=== PATIENT | male | born 1980 | race Caucasian/White ===

== ENCOUNTER → 2020-12-22 13:37 | Outpatient (BNVA) | payer OTHER, SELFPAY | PROVIDERS: PCP Internal Medicine; Visit Provider Surgery | DX: K60.3 Anal fistula (principal) | CPT/HCPCS: 99212 ==

== ENCOUNTER 2022-02-25 14:32 | Emergency (ER) | payer OTHER, SELFPAY ==
--- NOTE | ~2022-02-25 | XR_ITS ---
EXAMINATION: XR SHOULDER, RIGHT CLINICAL INFORMATION: Injury after throwing heavy object COMPARISON: None TECHNIQUE: Three views of the right shoulder. FINDINGS: Bone alignment is normal. No fracture or dislocation is seen. The glenohumeral joint is normal. There is mild arthritis at the acromioclavicular joint. Soft tissues are unremarkable. XR/XR shoulder RT min 2V IMPRESSION: Mild arthritis at the acromioclavicular joint.
[2022-02-25 14:44] VITALS: BP 122/76; BP 124/76; PULSE 74; PULSE 80; RESP 20; TEMP 36.7; O2SAT 96; O2SAT 97; BMI 21.1
--- NOTE | 2022-02-25 15:42 | ED.UPPEXIN ---
HPI - Extremity Injury (Upper) General Chief Complaint: Extremity Problem Stated Complaint: shoulder pain Time Seen by Provider: 02/25/22 15:34 Source: patient Mode of arrival: ambulatory Limitations: no limitations History of Present Illness MD complaint: injury to: right and shoulder Onset (ago): day(s) (2) Other Extremity Injury: right: shoulder Other injuries: none Place: outdoors Severity: severe Severity scale (1-10): >10 Relieving factors: none Exacerbating factors: movement of extremity Context: other (Heavy lifting) Associated symptoms: denies other symptoms Related Data Previous Rx's Medication Instructions Recorded cyclobenzaprine 10 mg tablet 10 mg PO Q8H PRN #10 tab 02/25/22 naproxen 500 mg tablet 500 mg PO BID PRN #10 tab 02/25/22 Allergies Allergy/AdvReac Type Severity Reaction Status Date / Time No Known Allergies Allergy Unverified 07/09/20 15:12 [No Known Allergies*] Review of Systems Review of Systems: Constitutional : No Weight loss, No Fever, No Chills, No Night Sweats, No Fatigue, No Malaise ENT/Mouth : No Hearing loss, No Ear Pain, No Nasal Congestion, No Sinus Pain, No Hoarseness, No sore throat, No Rhinorrhea, No Swallowing Difficulty Eyes: No Eye Pain, No Swelling, No Redness, No Foreign Body, No Discharge, No Vision Changes Cardiovascular : No Chest Pain, No SOB, No Dyspnea on Exertion, No Orthopnea, No Edema, No Palpitations Respiratory : No Cough, No Sputum, No Wheezing, No Smoke Exposure, No Dyspnea Gastrointestinal : No Nausea, No Vomiting, No Diarrhea, No Constipation, No abdominal Pain, No Hematochezia, No Melena Genitourinary : no irregular bleeding, No Dysuria, No Urinary Frequency, No Hematuria, No Urinary Incontinence, No Urgency, No Flank Pain, No Urinary Flow Changes, No Hesitancy Musculoskeletal : + right shoulder joint pain, No Myalgias, No Joint Swelling Skin : No Skin Lesions, No rash Neuro : No Weakness, No Numbness, No Paresthesias, No Loss of Consciousness, No Dizziness, No Headache Psych : No Anxiety/Panic, No Depression, No SI/HI/AH/VH, No Social Issues, Heme/Lymph: No Bruising, No Bleeding,No Lymphadenopathy Endocrine : No Polyuria, No Polydipsia, No Temperature Intolerance Yes all other systems are reviewed and are negative [facility] Past Medical History Attestation statement: The following information was validated with the patient. Medical History Anxiety Depression History of substance abuse Paralysis of right lower extremity Surgical History H/O fasciotomy (05/03/17) Family History Family History Maternal Grandmother History of cancer Social History Social History Alcohol intake: never Advance Directives: No Advance Directives Information Provided: No Physical Exam Vital Signs: Vital Signs: Last Vital Signs Temp 98.0 F 02/25/22 14:44 Pulse 74 02/25/22 14:44 Resp 20 02/25/22 14:44 BP 124/76 02/25/22 14:44 Pulse Ox 96 02/25/22 14:44 BMI result Body Mass Index 21.1 vital signs have been reviewed as normal and appeared to be correct. Blood pressure normal Heart rate normal. Respiration rate normal. Temperature normal. Oxygen saturation normal. Appearance: Alert. Oriented X3. No acute distress. Head: Normal external exam. Normocephalic. Atraumatic. Eyes: PERRLA. EOMI. Conjunctiva and sclera normal. Eyelids normal. ENT: Pharynx normal. Uvula midline. Moist mucous membranes. Neck: Normal inspection. Neck supple. FROM. CVS: Normal heart rate and rhythm. Respiratory: No respiratory distress. Painless inspiration. Skin: Skin warm and dry. Normal skin color. Normal skin turgor. No rashes/lesions/lacerations noted. Extremities: Patient moderate tenderness palpation to the right AC joint with limited range of motion due to pain no obvious ligamentous or tendon injury noted. No muscle rupture noted. Patient has chronic right lower extremity weakness with his boot on. Otherwise all other extremities exhibit normal range of motion nontender. No edema noted. Neuro: Oriented X 3. No motor deficit. No sensory deficit. Reflexes normal. Normal steady gait. No focal neuro deficits noted. Vascular: + radial pulses/+ 2 distal pedal pulses/+2 dorsalis pedis b/l. Normal cap refill. No cyanosis noted to upper extremity nails and lower extremity toes nails. Course Course Course Narrative: X-ray revealed mild arthritis otherwise no other acute processes. Will place in a sling although explained to the patient that he needs to attempt to move his shoulder as much as he can to prevent frozen shoulder. Along with instructions to follow-up with his PCP or orthopedics if symptoms persist for possible outpatient MRI they decide it is clinically indicated. Patient understands agrees with this plan. MDM - Extremity Injury (Upper) Medical Records Attestation: I reviewed the patient's medical records. Imaging Data Right shoulder x-ray: Attestation: I personally reviewed and interpreted this imaging study as follows: Radiologist's impression: FINDINGS: Bone alignment is normal. No fracture or dislocation is seen. The glenohumeral joint is normal. There is mild arthritis at the acromioclavicular joint. Soft tissues are unremarkable.? XR/XR shoulder RT min 2V IMPRESSION: Mild arthritis at the acromioclavicular joint. Discharge Plan Discharge Clinical Impression: Arthritis of right shoulder region, Right shoulder strain Patient Disposition: Home, Self-Care Instructions: Muscle Strain (DC), Osteoarthritis (ED), How to Use a Sling (ED) Prescriptions: New naproxen 500 mg tablet 500 mg PO BID PRN (Reason: pain) Qty: 10 0RF cyclobenzaprine 10 mg tablet 10 mg PO Q8H PRN (Reason: Muscle spasm) Qty: 10 0RF Referrals: Richa Hart MD [Physician] - 2 weeks (Call to make a follow-up appointment within 2-3 weeks) Interventions: ED Discharge Assessment Last Done: 02/25/22 15:53 Print Language: French
--- NOTE | 2022-02-25 17:11 | PC.NURSE ---
ALLICION ATTENPTED TO BOOK RIDE HOME BY CHAIR VAN FOR PATIENT. PT DID NOT QUALIFY FOR CHAIR VAN. PT AWARE AMB OUT OF [facility] WITH [facility].
== END 2022-02-25 17:13 | disposition home or self-care (01) ==
LOC: HO.ED 15:48
PROVIDERS: Emergency Provider Emergency Medicine Emergency Medical Services
DX: S46.911A Strain of unspecified muscle, fascia and tendon at shoulder and upper arm level, right arm, initial encounter (principal); M19.011 Primary osteoarthritis, right shoulder; X50.0XXA Overexertion from strenuous movement or load, initial encounter; Y93.9 Activity, unspecified; Y92.9 Unspecified place or not applicable; Y99.9 Unspecified external cause status
CPT/HCPCS: 73030; 99283

== ENCOUNTER 2023-05-31 12:04 | Outpatient (REF) | payer OTHER, SELFPAY ==
[2023-05-31 13:30] LABS: MANUAL DIFF FLAG NO
[2023-05-31 13:38] LABS: Basophils Percent Auto 0.3 % (0-2); Eosinophils Absolute Auto 0.1 X10*3/uL (0.0-0.4); Eosinophils Percent Auto 2.1 % (0-4); Hematocrit 38.4 % (42.0-52.0); Hemoglobin 12.1 g/dl (14.0-18.0); Imm Gran Abs Auto 0.01 X10*3/uL (0.00-0.03); Imm Gran Pct Auto 0.2 % (0.0-0.4); Lymphocytes Absolute Auto 1.7 X10*3/uL (1.2-4.9); Lymphocytes Percent Auto 25.4 % (20-40); Mean Corpuscular HGB Conc 31.5 g/dl (31.0-36.0); Mean Corpuscular Hemoglobin 28.5 pg (27.0-33.0); Mean Corpuscular Volume 90.6 fL (80.0-98.0); Mean Platelet Volume 10.5 fL (9.4-12.4); Monocytes Absolute Auto 0.5 X10*3/uL (0.1-1.2); Monocytes Percent Auto 6.9 % (2-11); Neutrophils Absolute Auto 4.3 x10*3/uL (2.0-8.3); Neutrophils Percent Auto 65.1 % (45-73); Platelet Count 222 X10*3/uL (160-400); Red Blood Count 4.24 X10*6/uL (4.60-5.80); Red Cell Distribution Width 13.2 % (11.0-16.0); White Blood Count 6.6 X10*3/uL (4.8-10.8)
[2023-05-31 13:51] LABS: Alanine Aminotransferase 48 U/L (0-40); Albumin Level 4.2 g/dL (3.5-5.0); Alkaline Phosphatase 90 U/L (39-117); Anion Gap 12 (12-20); Aspartate Amino Transferase 42 U/L (5-37); Bilirubin Total 0.1 mg/dL (0.0-1.0); Blood Urea Nitrogen 13 mg/dL (9-16); Calcium 9.7 mg/dL (8.4-10.2); Carbon Dioxide 28 mmol/L (22-29); Chloride 104 mmol/L (96-108); Cholesterol 147 mg/dL; Estimated Glomerular Filt Rate > 60; Glucose Random 130 mg/dL (60-115); Potassium 4.5 mmol/L (3.3-5.1); Sodium 139 mmol/L (135-145); Total Protein 7.3 g/dL (6.5-8.0)
== END 2023-05-31 12:05 | disposition home or self-care (01) ==
LOC: HO.10HDL 12:04
PROVIDERS: Visit Provider Internal Medicine
DX: M21.951 Unspecified acquired deformity of right thigh (principal); Z79.899 Other long term (current) drug therapy
CPT/HCPCS: 36415; 80053; 82465; 85025

== ENCOUNTER 2024-04-30 08:58 | Outpatient (AMB) | payer OTHER, SELFPAY ==
--- NOTE | 2024-04-30 08:59 | A.OFFVIS_ITS ---
Intake Visit Reasons: Cyst on buttock and discussion BKA Intake Note: This patient presents for a cyst on the right buttock and discussion BKA. Patient c/o; reports occasional drainage from buttock cyst, reports pain, reports wants to proceed with BKA right lower extremity. 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 He reports occasional swelling and pain and occasional discharge from the site. He previously underwent drainage of this cyst with this has subsequently recurred. He presents now to discuss a wider excision. He also has a prior history of right leg compartment syndrome requiring fasciotomy and debridement of necrotic muscle. He now has deformity of the right leg is considering an elective right leg below-knee amputation given his significant disability. [facility] Medical History History of substance abuse Paralysis of right lower extremity Depression Anxiety Surgical History H/O fasciotomy (05/03/17) Family History Maternal Grandmother History of cancer Social History Alcohol intake: never Review of Systems Const All systems reviewed & are unremarkable except as noted in HPI and below Physical Exam Const General: no acute distress Nutritional Appearance: well nourished Orientation/consciousness: patient oriented x3 HEENT Head: Yes normocephalic and Yes atraumatic Resp Effort & Inspection: normal respiratory effort, no audible wheezes, no cough and no respiratory distress Back/Spine/Pelvis Other: Right buttock with a 2 cm cystic lesion located at approximately the 03:00 o'clock location, with central scar. No overlying erythema is appreciated. Lesion is slightly fluctuant. Minimal tenderness noted to palpation. Neuro General: patient oriented x3 Extrem Other: Deformed right ankle with inward rotation. Overlying brace in place. Ankle/foot/toe images: 2 1. Inward rotation Assessment & Plan Assessment & Plan (1) Perirectal cyst: Code(s): K62.89 - Other specified diseases of anus and rectum Category: Medical Plan 43-year-old male patient presenting with a recurrent perirectal cyst suggestive of a perirectal abscess. I recommended wide excision with possible excision of an internal track. After discussion of the procedure, risks, and alternatives, he consents to the excision of the right perirectal cyst. This will be scheduled as a short-stay surgery. Coding Level of Care Code Est Pt Level 3 (75793) Diagnoses Perirectal cyst K62.89
== END 2024-04-30 09:23 | disposition home or self-care (01) ==
PROVIDERS: PCP Internal Medicine; Visit Provider Surgery
DX: K62.89 Other specified diseases of anus and rectum (principal)
CPT/HCPCS: 99214

== ENCOUNTER → 2024-04-30 08:58 | Outpatient (BNVA) | payer OTHER, SELFPAY | PROVIDERS: PCP Internal Medicine; Visit Provider Surgery | DX: K62.89 Other specified diseases of anus and rectum (principal) | CPT/HCPCS: 99212 ==

== ENCOUNTER 2025-01-30 11:49 | Outpatient (AMB) | payer OTHER, SELFPAY ==
--- NOTE | 2025-01-30 11:54 | MHC.OFFVIS ---
Vital Signs 01/30/25 11:55 Height 5 ft 7 in Weight 136 lb 10.986 oz BMI 21.4 BP 110/72 Blood Pressure Location Lt brachial Position Sitting Intake Visit Reasons: cyst on buttock Intake Note: Patient is seen in office for recurrent cyst on the buttock. Pt c/o: admits to recurrent cyst, last recurrence was 3 wks ago, discharge stopped 3 days ago, would like to have cyst surgically removed L.OV:04/30/25 Jazz Musician Required: No Accompanied by: Self / Same As Patient Allergies No Known Allergies [No Known Allergies*] Allergy (Verified 01/30/25 11:55) Medication List - Last Reconciled 01/30/25 by Sean Pastrana MD cyclobenzaprine 10 mg PO Q8H PRN ibuprofen 800 mg PO BID PRN methadone 120 mg PO DAILY naproxen 500 mg PO BID PRN HPI Comments Details: 44-year-old male patient who again returns for re-evaluation of a perirectal cyst. He has had multiple previous infections and was previously evaluated for excision. The patient has never undergone the excision recommended. He developed increased area of swelling and pain over the past week. After applying warm compresses he was able to drain the infected cyst of a large collection of pus. Since this time the pain has decreased and the swelling has markedly improved. He presents today to discuss excision of this recurrent perirectal cyst. [facility] Medical History History of substance abuse Paralysis of right lower extremity Depression Anxiety Surgical History H/O fasciotomy (05/03/17) Family History Maternal Grandmother History of cancer Social History Alcohol intake: never Physical Exam Vital Signs: Last Vital Signs BP 110/72 01/30/25 11:55 BMI result Body Mass Index 21.4 Const General: no acute distress Nutritional Appearance: well nourished Orientation/consciousness: patient oriented x3 HEENT Head: Yes normocephalic and Yes atraumatic Resp Effort & Inspection: normal respiratory effort, no audible wheezes, no cough and no respiratory distress Back/Spine/Pelvis Other: Right buttock with a 2 cm cystic lesion located at approximately the 03:00 o'clock location, with central scar. No overlying erythema is appreciated. Lesion is slightly fluctuant. Minimal tenderness noted to palpation. Neuro General: patient oriented x3 Extrem Other: Deformed right ankle with inward rotation. Overlying brace in place. Assessment & Plan Assessment & Plan (1) Perirectal cyst: Code(s): K62.89 - Other specified diseases of anus and rectum Category: Medical Plan 44-year-old male patient with a recurring perirectal abscess returning after a recent infection which cause an increased amount of pain swelling. Examination today reveals healing scar from a recent infection. There is still some surrounding inflammatory tissue noted. No undrained abscess is appreciated at this time. We again discussed wide excision of this area to prevent further infections and after discussion of the procedure, risks, and alternatives, he consents to an excision of the right perirectal cyst. He will be scheduled as a short-stay surgery. Coding Level of Care Code Est Pt Level 4 (33714) Diagnoses Perirectal cyst K62.89
[2025-01-30 11:55] VITALS: BP 110/72; BMI 21.4
== END 2025-01-30 12:00 | disposition home or self-care (01) ==
LOC: HO.HGS 11:49
PROVIDERS: PCP Internal Medicine; Visit Provider Surgery
DX: K62.89 Other specified diseases of anus and rectum (principal)
CPT/HCPCS: 99214

== ENCOUNTER → 2025-01-30 11:49 | Outpatient (BNVA) | payer OTHER, SELFPAY | PROVIDERS: PCP Internal Medicine; Visit Provider Surgery | DX: K62.89 Other specified diseases of anus and rectum (principal) | CPT/HCPCS: 99212 ==

== ENCOUNTER 2025-02-26 10:25 | Outpatient (AMB) | payer OTHER, SELFPAY ==
[2025-02-26 09:44] VITALS: BP 112/62; PULSE 78; TEMP 36.2; O2SAT 97; BMI 19.7
--- NOTE | 2025-02-26 09:44 | A.OFFPC_ITS ---
Vital Signs 02/26/25 09:44 Height 5 ft 7 in Weight 126 lb BMI 19.7 BP 112/62 Blood Pressure Location Rt brachial Position Sitting Pulse 78 Pulse Source Pulse Oximeter Temp 97.2 F Temp Source Axillary Pulse Oximetry (%) 97 Oxygen Delivery Method Room Air Intake Visit Reasons: Routine - see comments Building Wrecker Required: No Accompanied by: Self / Same As Patient Allergies No Known Allergies [No Known Allergies*] Allergy (Verified 02/26/25 09:45) Tobacco use date assessed: 02/26/25 Dental Screening Dental Screen Date: 02/26/25 Did you have a dental visit in the last 12 months?: No Did you have a dental problem in the last 6 months where you did not have access to dental care?: No PFSH Medical History History of substance abuse Paralysis of right lower extremity Depression Anxiety Surgical History H/O fasciotomy (05/03/17) Family History (Updated 02/26/25 @ 10:39 by Kanwal Steele MA) Maternal Grandmother History of cancer Mother No problems noted. Father No problems noted. Sister Mental health disorder Social History Housing: Apartment Alcohol intake: never Patient Tobacco Use Status: Former Tobacco user e-Cigarette/Vaping Use: Former Use service: No Current occupational status: disabled Cognitive needs: No Hearing needs: No Vision needs: No Questionnaire PHQ-9 Over the last 2 weeks, how often have you been bothered by any of the following problems? 1. Little interest or pleasure in doing things: not at all 2. Feeling down, depressed, or hopeless: not at all 3. Trouble falling or staying asleep, or sleeping too much: not at all 4. Feeling tired or having little energy: not at all 5. Poor appetite or overeating: not at all 6. Feeling bad about yourself - or that you are a failure or have let yourself or your family down: not at all 7. Trouble concentrating on things, such as reading the newspaper or watching television: not at all 8. Moving or speaking so slowly that other people could have noticed. Or the opposite - being so fidgety or restless that you have been moving around a lot more than usual: not at all 9. Thoughts that you would be better off or of hurting yourself in some way: not at all Total score: 0 Source: Developed by Drs. Mushtaq Wilson, Adam Slater and colleagues, with an educational emilie from [employer]. Thrive Questionnaire Date Thrive assessed: 02/26/25 I am a: Patient Within the past 12 months, did the food you bought not last and you didn't have the money to get more?: Never true Within the past 12 months, did you worry whether your food would run out before you got money to buy more?: Never true Do you have trouble paying for medicines?: No Do you have trouble getting transportation to medical appointments?: No Do you have trouble paying your heating and electricity bill?: No Do you have trouble taking care of your child, family member or friend?: No Do you have trouble with day-to-day activities such as bathing, preparing meals, shopping, managing finances, etc.?: No Are you currently unemployed and looking for a job?: No Are you interested in more education?: No THRIVE Score: 0 AUDIT C Alcohol Use Questionnaire (AUDIT-C) 1. How often do you have a drink containing alcohol?: Never 3. How often do you have six or more drinks on one occasion?: Never Total Score: 0 BROOKLYN-7 AMB Questionnaire BR[place]N-7 Date [place] - 7 assessed: 02/26/25 Feeling nervous, anxious, or on edge: 0 = Not at all Not being able to stop or control worryin = Not at all Worrying too much about different things: 0 = Not at all Trouble relaxin = Not at all Being so restless that it is hard to sit still: 0 = Not at all Becoming easily annoyed or irritable: 0 = Not at all Feeling afraid as if something awful might happen: 0 = Not at all Total [place]-7 score (0-4 normal; 5-9 mild; 10-14 moderate; 15-21 severe): 0 Source: Developed by Drs. Mushtaq Wilson, Adam Slater and colleagues, with an educational emilie from [employer]. Physical exam (Primary Care) Vital Signs: Last Vital Signs Temp 97.2 F 02/26/25 09:44 Pulse 78 02/26/25 09:44 BP 112/62 02/26/25 09:44 Pulse Ox 97 02/26/25 09:44 Oxygen Delivery Method Room Air 02/26/25 09:44 BMI result Body Mass Index 19.7 Tobacco/Smoking Status: Tobacco use Status Tobacco use date assessed 02/26/25 02/26/25 09:46 Patient Tobacco Use Status Former Tobacco user 02/26/25 10:39 e-Cigarette/Vaping Use Former Use 02/26/25 10:39 PHQ-9: PHQ-9 Score PHQ-9: Total score 0 02/26/25 10:39 Thrive Assessment: Date of Thrive Assessment Date Thrive assessed 02/26/25 02/26/25 09:46 Coding Level of Care Code New Pt Level 4 (36491) Complex EM visit Add On G2211 Diagnoses [id number] K60.3 Pre-operative clearance Z01.818 Assessment & Plan Assessment & Plan (1) Oeztyei-nn-[id number]: Code(s): K60.3 - Anal fistula Category: Medical Plan: Scheduled for surgery/ (2) Pre-operative clearance: Code(s): Z01.818 - Encounter for other preprocedural examination Plan: Patient will be cleared for surgery after reviewing blood work and EKG Plan History of Present Illness The patient is a 44-year-old male presenting for a preoperative assessment to address a recurrent pilonidal cyst, 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 This condition has persisted for years and has been subject to previous surgical intervention by Dr. Pastrana. The latest plan is to surgically excise this recurrent cyst following today's evaluation. Additionally, the patient reports paralysis in one foot resulting from muscle atrophy secondary to an accidental overdose in 2017, leading to the removal of a significant portion of his calf muscle. This condition has left the patient disabled, and an amputation is being considered as a next step. The patient is currently under methadone maintenance therapy, a regimen closely aligned with his opioid use disorder status, with cessation of substance use reported for the past year. Social History - Currently unemployed and on disability due to paralysis of the foot following muscle atrophy after an overdose. - Lives with two children: a son aged 21 and a daughter aged 11. - Reports a stable methadone regimen without any recent substance use for the past year. Review of Systems - Constitutional: Denies current health concerns. - Respiratory: Reports diagnosis of asthma. - Neurological: Reports history of foot paralysis. - Psychological: Denies current use of substances; on methadone maintenance therapy. Physical Exam General: Cooperative and healthy appearing Nutritional Appearance: Well nourished Orientation/consciousness: Patient oriented x3 Limitations: No limitations Head: Normal to inspection General: Appearance normal, both eyes and all related structures Neck: Normal visual inspection Chest: Normal palpation of entire chest wall Respiratory: N ormal respiratory effort Neurology: Patient oriented x3, paralysis in foot due to accidental overdose, no muscle movement in foot. Results Plan 1. Pilonidal Cyst - Surgical removal coordinated; blood work and EKG arranged for preoperative assessment. 2. Opioid Use Disorder - Maintain current methadone dose; monitor abstinence status. 3. 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 Discussion Notes During the visit, I discussed the necessity of surgical intervention for the pilonidal cyst and coordinated with Dr. Pastrana for the removal procedure. We agreed on completing pre-operative blood work and an EKG for a thorough preoperative health assessment. Discussions were held regarding his methadone maintenance therapy, emphasizing continued abstinence which has been stable for the past year. I also addressed the potential for amputation of the affected foot due to paralysis, referencing the significant muscle loss following the overdose in 2017, and deliberated on surgical consults for possibly proceeding with amputation. Patient Instructions - Proceed with prescribed blood work and EKG for preoperative evaluation. - Continue with methadone as directed and attend scheduled follow-ups. - Maintain abstinence from substances. - Follow up with Dr. Pastrana for scheduled surgery. - Contact healthcare provider if any new symptoms arise or for immediate health concerns.
== END 2025-02-26 11:44 | disposition home or self-care (01) ==
LOC: HO.HMCHD 10:26
PROVIDERS: PCP Internal Medicine; Visit Provider Internal Medicine
DX: K60.30 Anal fistula, unspecified (principal); Z01.818 Encounter for other preprocedural examination

== ENCOUNTER → 2025-02-26 10:25 | Outpatient (BNVA) | payer OTHER, SELFPAY | PROVIDERS: PCP Internal Medicine; Visit Provider Internal Medicine | DX: Z01.818 Encounter for other preprocedural examination (principal); K60.30 Anal fistula, unspecified; G83.89 Other specified paralytic syndromes; M62.579 Muscle wasting and atrophy, not elsewhere classified, unspecified ankle and foot; F11.20 Opioid dependence, uncomplicated | CPT/HCPCS: 99202 ==

== ENCOUNTER 2025-09-02 14:34 | Outpatient (AMB) | payer OTHER, SELFPAY ==
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
[2025-09-02 14:42] VITALS: BP 122/68; PULSE 86; RESP 18; TEMP 36.6; O2SAT 97; BMI 20.3
== END 2025-09-02 15:11 | disposition home or self-care (01) ==
PROVIDERS: PCP Student in an Organized Health Care Education/Training Program; Visit Provider Student in an Organized Health Care Education/Training Program
DX: Z00.00 Encounter for general adult medical examination without abnormal findings (principal); G44.89 Other headache syndrome; G83.11 Monoplegia of lower limb affecting right dominant side; F17.209 Nicotine dependence, unspecified, with unspecified nicotine-induced disorders; F11.91 Opioid use, unspecified, in remission; R74.8 Abnormal levels of other serum enzymes

== ENCOUNTER → 2025-09-02 14:34 | Outpatient (BNVA) | payer OTHER, SELFPAY | PROVIDERS: PCP Internal Medicine; Visit Provider Student in an Organized Health Care Education/Training Program | DX: Z00.00 Encounter for general adult medical examination without abnormal findings (principal); G44.89 Other headache syndrome; G83.11 Monoplegia of lower limb affecting right dominant side; F17.209 Nicotine dependence, unspecified, with unspecified nicotine-induced disorders; F11.91 Opioid use, unspecified, in remission; R74.8 Abnormal levels of other serum enzymes | CPT/HCPCS: 93005; 96127; 99212; 99396 ==